=== PATIENT | male | born 1985 | race Caucasian/White ===

== ENCOUNTER → 2020-01-25 19:15 | Outpatient (REF) | payer OTHER, SELFPAY | LOC: HO.SL 19:15 | PROVIDERS: PCP Internal Medicine; Visit Provider Internal Medicine | DX: G47.33 Obstructive sleep apnea (adult) (pediatric) (principal) | CPT/HCPCS: 95811 ==

== ENCOUNTER 2020-09-19 08:40 | Outpatient (REF) | payer OTHER, SELFPAY ==
[2020-09-19 09:23] LABS: MANUAL DIFF FLAG NO
[2020-09-19 09:38] LABS: Basophils Percent Auto 0.2 % (0-2); Eosinophils Absolute Auto 0.1 X10*3/uL (0.0-0.4); Eosinophils Percent Auto 1.2 % (0-4); Hematocrit 39.6 % (42-52); Hemoglobin 13.1 g/dl (14.0-18.0); Imm Gran Abs Auto 0.03 X10*3/uL (0.00-0.03); Imm Gran Pct Auto 0.4 % (0.0-0.4); Lymphocytes Percent Auto 24.5 % (20-40); Mean Corpuscular HGB Conc 33.1 g/dl (31.0-36.0); Mean Corpuscular Hemoglobin 28.6 pg (27.0-33.0); Mean Corpuscular Volume 86.5 fL (80-98); Mean Platelet Volume 9.4 fL (9.4-12.4); Monocytes Absolute Auto 0.5 X10*3/uL (0.1-1.2); Monocytes Percent Auto 5.6 % (2-11); Neutrophils Absolute Auto 5.5 X10*3/uL (2.0-8.3); Neutrophils Percent Auto 68.1 % (45-73); Platelet Count 299 X10*3/uL (160-400); Red Blood Count 4.58 X10*6/uL (4.60-5.80); Red Cell Distribution Width 13.2 % (11.0-16.0); White Blood Count 8.1 X10*3/uL (4.8-10.8)
[2020-09-19 10:18] LABS: Alanine Aminotransferase 54 U/L (0-40); Albumin Level 4.6 g/dL (3.5-5.0); Alkaline Phosphatase 76 U/L (39-117); Anion Gap 14 (12-20); Aspartate Amino Transferase 36 U/L (5-37); Bilirubin Total 0.5 mg/dL (0.0-1.0); Blood Urea Nitrogen 15 mg/dL (9-16); Calcium 9.9 mg/dL (8.4-10.2); Carbon Dioxide 26 mmol/L (22-29); Chloride 106 mmol/L (96-108); Cholesterol 214 mg/dL; Estimated Glomerular Filt Rate > 60; Glucose Fasting 120 mg/dL (60-99); HDL Cholesterol 39 mg/dL; Potassium 4.1 mmol/L (3.3-5.1); Sodium 142 mmol/L (135-145); Total Protein 7.7 g/dL (6.5-8.0); Triglycerides 537 mg/dL
[2020-09-19 10:24] LABS: Thyroid Stimulating Hormone 0.45 uIU/mL (0.32-4.0)
== END 2020-09-19 08:41 | disposition home or self-care (01) ==
LOC: HO.LAB 08:40
PROVIDERS: PCP Internal Medicine; Visit Provider Internal Medicine
DX: Z00.00 Encounter for general adult medical examination without abnormal findings (principal); E11.9 Type 2 diabetes mellitus without complications; E03.9 Hypothyroidism, unspecified
CPT/HCPCS: 36415; 80053; 80061; 84443; 85025

== ENCOUNTER 2020-12-20 13:02 | Emergency (ER) | payer OTHER, SELFPAY ==
--- NOTE | ~2020-12-20 | XR_ITS ---
EXAMINATION: XR CHEST CLINICAL INFORMATION: Shortness of breath COMPARISON: None TECHNIQUE: AP portable view of the chest was obtained. FINDINGS: No significant abnormality is noted involving the heart, lungs, mediastinum, bony thorax or soft tissues. XR/XR chest 1V IMPRESSION: No acute disease.
--- NOTE | ~2020-12-20 | CT_ITS ---
EXAMINATION: CT ANGIOGRAM OF THE CHEST WITH AND WITHOUT CONTRAST (CT PULMONARY ANGIOGRAM FOR PE) CLINICAL INFORMATION: Reason for Exam tachycardia, sob, r/o pe, COVID + COMPARISON: None TECHNIQUE: Prior to contrast administration, noncontrast localization images were obtained. Subsequently, multidetector volumetric imaging was performed from the thoracic inlet to below the diaphragms following the administration of 68 mL Omnipaque 350 intravenous contrast. No contrast reaction reported Sagittal, coronal, and MIP oblique sagittal reformatted images were obtained on the CT workstation, uploaded to PACS, and reviewed. This CT examination was performed using dose optimization techniques as appropriate, variously including the following: *Automated exposure control *Adjustment of mA and/or kV according to patient size (this includes techniques or standardized protocols for targeted exams where dose is matched to indication/reason for exam; i.e. extremities or head) *Use of iterative reconstruction technique Total exam dose-length product 533 mGy-cm FINDINGS: QUALITY OF STUDY/CONTRAST BOLUS : Suboptimal. The bolus is not optimal and there is marked respiratory artifact PULMONARY ARTERIES: No central or large segmental pulmonary emboli. THORACIC AORTA: No aneurysm or dissection. LUNG: No focal consolidation, nodules or masses. No changes related to Covid pneumonia are present. PLEURA: No pleural effusion or pneumothorax. MEDIASTINUM: Normal heart size. No pericardial effusion. No hilar or mediastinal lymphadenopathy. No evidence of septal bowing or right heart strain. CHEST WALL/AXILLA: No axillary or internal mammary lymphadenopathy. OSSEOUS STRUCTURES: No acute or suspicious osseous abnormality. UPPER ABDOMEN: There is marked hepatic steatosis. No reflux of contrast into the hepatic veins to suggest elevated right heart pressures. CT/CT angio chest PE protocol IMPRESSION: No evidence of gross pulmonary emboli. Study has limitations as described above. VTE: negative
[2020-12-20 13:33] VITALS: BP 138/98; PULSE 128; RESP 16; TEMP 37.2; O2SAT 98; BMI 29.0
[2020-12-20] MEDS: Acetaminophen 325 MG TABLET 650 MG PO ×2 (14:33→22:50)
[2020-12-20 16:23] LABS: MANUAL DIFF FLAG NO
[2020-12-20 16:35] LABS: COVID-19 Test Positive (Negative); IDNOW Serial# 9DD0AD1C
[2020-12-20 16:40] LABS: Basophils Percent Auto 0.3 % (0-2); Eosinophils Percent Auto 0.1 % (0-4); Hematocrit 42.9 % (42-52); Hemoglobin 14.4 g/dl (14.0-18.0); Imm Gran Abs Auto 0.02 X10*3/uL (0.00-0.03); Imm Gran Pct Auto 0.3 % (0.0-0.4); Lymphocytes Absolute Auto 1.6 X10*3/uL (1.2-4.9); Lymphocytes Percent Auto 22.2 % (20-40); Mean Corpuscular HGB Conc 33.6 g/dl (31.0-36.0); Mean Corpuscular Hemoglobin 27.6 pg (27.0-33.0); Mean Corpuscular Volume 82.3 fL (80-98); Mean Platelet Volume 9.2 fL (9.4-12.4); Monocytes Absolute Auto 0.6 X10*3/uL (0.1-1.2); Monocytes Percent Auto 8.8 % (2-11); Neutrophils Absolute Auto 4.9 X10*3/uL (2.0-8.3); Neutrophils Percent Auto 68.3 % (45-73); Platelet Count 228 X10*3/uL (160-400); Red Blood Count 5.21 X10*6/uL (4.60-5.80); Red Cell Distribution Width 13.9 % (11.0-16.0); White Blood Count 7.1 X10*3/uL (4.8-10.8)
[2020-12-20 16:43] LABS: Anion Gap 16 (12-20); Blood Urea Nitrogen 18 mg/dL (9-16); Carbon Dioxide 21 mmol/L (22-29); Chloride 100 mmol/L (96-108); Creatinine Clr Calc Pharmacy 114.8; Estimated Glomerular Filt Rate > 60; Glucose Random 100 mg/dL (60-115); Potassium 3.5 mmol/L (3.3-5.1); Sodium 133 mmol/L (135-145)
[2020-12-20 16:48] LABS: B Type Natriuretic Peptide < 10 pg/mL (<100); Troponin-I High Sensitivity 3.8 ng/L (<3.5-35.0)
--- NOTE | 2020-12-20 19:42 | ED_ITS ---
HPI - SOB/Dyspnea General Chief Complaint: Dyspnea <Vi Collins NP - Last Filed: 12/20/20 23:19> Stated Complaint: diff breathing <Vi Collins NP - Last Filed: 12/20/20 23:19> Time Seen by Provider: 12/20/20 19:09 <Vi Collins NP - Last Filed: 12/20/20 23:19> Source: patient <Vi Collins NP - Last Filed: 12/20/20 23:19> Mode of arrival: ambulatory <Vi Collins NP - Last Filed: 12/20/20 23:19> Limitations: no limitations <Vi Collins NP - Last Filed: 12/20/20 23:19> History of Present Illness HPI Narrative: 35-year-old male with a past medical history of obstructive sleep apnea, alcohol abuse here with complaints of shortness of breath, headache, subjective fevers for 2 days. Patient has completed detox for alcohol and is currently in a TSS home. Multiple residents are quarantining waiting for COVID results to come back. Patient tells me he received the Moderna vaccine but only 1 dose 3 months ago. He tells me he forgot to get the 2nd dose. No chest pain, leg swelling, abdominal pain, vomiting, diarrhea, neck pain. He does have a cough <Vi Collins NP - Last Filed: 12/20/20 23:19> Related Data Home Medications: Home Medications Medication Instructions Recorded Confirmed clonidine HCl 0.1 mg tablet 0.1 mg PO BEDTIME 09/18/20 hydrochlorothiazide 12.5 mg capsule mg PO 09/18/20 olanzapine 15 mg tablet 15 mg PO BEDTIME 09/18/20 simvastatin 40 mg tablet 40 mg PO BEDTIME 09/18/20 trazodone 100 mg tablet 100 mg PO BEDTIME 09/18/20 Previous Rx's Medication Instructions Recorded sertraline 100 mg tablet 100 mg PO DAILY #90 tab 02/03/20 BIPAP MACHINE #1 ea 08/30/20 azithromycin 250 mg tablet See Rx Instructions PO .COMPLEX #6 10/03/20 tab <Vi Collins NP - Last Filed: 12/20/20 23:19> Allergies/Adverse Reactions: Allergies Allergy/AdvReac Type Severity Reaction Status Date / Time No Known Allergies Allergy Verified 10/03/20 14:15 <Vi Collins NP - Last Filed: 12/20/20 23:19> Review of Systems Review of Systems: Yes all other systems are reviewed and are negative <Vi Collins NP - Last Filed: 12/20/20 23:19> Constitutional: Constitutional: Reports no additional constitutional complaints, Reports body ache(s), Denies chills, Reports fever(s) (Subjective), Reports headache(s) and Denies weakness <Vi Collins NP - Last Filed: 12/20/20 23:19> Eyes: Eyes: Reports no additional eye complaints and Denies change in vision <Vi Collins NP - Last Filed: 12/20/20 23:19> ENT: Reports system reviewed and no additional complaints, except as documented, Denies dizziness, Reports headache(s), Denies nasal congestion, Denies nasal discharge and Denies neck pain <Vi Collins NP - Last Filed: 12/20/20 23:19> Cardiovascular: Cardiovascular: Reports no additional cardiovascular comp laints, Denies chest pain, Denies leg edema and Reports dyspnea <Vi Collins NP - Last Filed: 12/20/20 23:19> Respiratory: Respiratory: Reports no additional respiratory complaints, Reports cough and Reports dyspnea <Vi Collins NP - Last Filed: 12/20/20 23:19> Gastrointestinal: Gastrointestinal: Reports no additional gastrointestinal complaints, Denies abdominal pain, Denies diarrhea, Denies nausea and Denies vomiting <Vi Collins NP - Last Filed: 12/20/20 23:19> Genitourinary: Genitourinary: Denies urinary incontinence <Vi Collins NP - Last Filed: 12/20/20 23:19> Musculoskeletal: Musculoskeletal: Reports no additional musculoskeletal complaints, Denies back pain, Denies arthralgias, Denies joint swelling, Denies neck pain, Denies numbness and Denies tingling <Vi Collins NP - Last Filed: 12/20/20 23:19> Integumentary/Breasts: Skin/Breast: Reports system reviewed and no additional complaints, except as docu and Denies rash <Vi Collins NP - Last Filed: 12/20/20 23:19> Neurologic: Reports system reviewed and no additional complaints, except as documented, Denies Abnormal speech present, Denies dizziness, Reports headache(s), Denies numbness, Denies tingling and Denies weakness <Vi Collins NP - Last Filed: 12/20/20 23:19> [facility] Past Medical History Attestation statement: The following information was validated with the patient. <Vi Jessica i, NP - Last Filed: 12/20/20 23:19> Source: old records reviewed and nursing notes reviewed <Vi Collins NP - Last Filed: 12/20/20 23:19> Medical History: Medical History (Updated 12/20/20 @ 21:14 by Vi Collins NP) Obstructive sleep apnea <Vi Collins NP - Last Filed: 12/20/20 23:19> Family History Family History: Family History Mother Mental health disorder Father No problems noted. <Vi Collins NP - Last Filed: 12/20/20 23:19> Social History Social History: Social History Housing: Apartment Alcohol intake: former Patient Tobacco Use Status: Current everyday Tobacco user Tobacco use type: Cigarette Cigarette Packs Per Day: 1 Cigarettes Per Day: 20 e-Cigarette/Vaping Use: Never Used Second Hand Smoke Exposure: No Use of substances other than those prescribed or required for medical reasons: No Advance Directives: No Advance Directives Information Provided: No service: No Current occupational status: unemployed <Vi Collins NP - Last Filed: 12/20/20 23:19> Physical Exam Vital Signs: Vital Signs: Last Vital Signs Temp 98.4 F 12/20/20 19:46 Pulse 113 H 12/20/20 19:46 Resp 20 12/20/20 19:46 BP 127/77 12/20/20 19:46 Pulse Ox 97 12/20/20 19:46 Body Mass Index 29.0 <Vi Collins NP - Last Filed: 12/20/20 23:19> Vital Signs: Last Vital Signs Temp 98.4 F 12/20/20 19:46 Pulse 113 H 12/20/20 19:46 Resp 20 12/20/20 19:46 BP 127/77 12/20/20 19:46 Pulse Ox 97 12/20/20 19:46 Body Mass Index 29.0 <Kristian Nur DO - Last Filed: 12/29/20 17:00> Const: General: cooperative, healthy appearing, comfortable and no acute distress <Vi Collins NP - Last Filed: 12/20/20 23:19> Orientation/consciousness: patient oriented x3 <Vi Collins NP - Last Filed: 12/20/20 23:19> Limitations: no limitations <Vi Collins NP - Last Filed: 12/20/20 23:19> HENMT: Head: Yes normal to inspection <Vi Collins NP - Last Filed: 12/20/20 23:19> Ears: hearing grossly normal bilaterally <Vi Collins NP - Last Filed: 12/20/20 23:19> General nose exam: Normal external nose present <Vi Collins NP - Last Filed: 12/20/20 23:19> Face and sinus: Yes normal facial exam <Vi Collins NP - Last Filed: 12/20/20 23:19> Mouth: Normal oral and palatal mucosa present <Vi Collins NP - Last Filed: 12/20/20 23:19> Throat: Yes posterior oropharynx normal <Vi Collins NP - Last Filed: 12/20/20 23:19> Eyes: General: appearance normal, both eyes and all related structures <Vi Collins NP - Last Filed: 12/20/20 23:19> Pupils: Equal, round and reactive pupils present <Vi Collins NP - Last Filed: 09/22/21 23:19> Neck: Neck: Yes normal visual inspection <Vi Collins NP - Last Filed: 12/20/20 23:19> Chest: Chest palpation & inspection: normal inspection of the chest <Vi Collins NP - Last Filed: 12/20/20 23:19> Resp: Other: Tachypnea-rate of 24 <Vi Collins OFFENSIVE COORDINATOR - Last Filed: 12/20/20 23:19> Auscultation: clear to auscultation bilaterally <Vi Collins OFFENSIVE COORDINATOR - Last Filed: 12/20/20 23:19> Cardio: Rate: tachycardic <Vi Collins NP - Last Filed: 12/20/20 23:19> Rhythm: regular rhythm <Vi Collins NP - Last Filed: 12/20/20 23:19> Peripheral pulses: Peripheral pulses 2+ throughout <Vi Collins NP - Last Filed: 12/20/20 23:19> GI: Inspection: Yes normal to inspection <Vi Collins NP - Last File d: 12/20/20 23:19> Palpation (GI): Soft to palpation and nontender <Vi Collins NP - Last Filed: 12/20/20 23:19> Auscultation: normal bowel sounds <Vi Collins NP - Last Filed: 23:19> Back/Spine/Pelvis: Thoracic/Lumbar Spine: thoracic and lumbar spine normal to inspection <Vi Collins NP - Last Filed: 12/20/20 23:19> Skin: General skin exam: no rashes or lesions noted <Vi Collins NP - Last Filed: 12/20/20 23:19> Neuro: General: patient oriented x3, no focal motor deficits and normal sensation to monofilament <Vi Collins NP - Last Filed: 12/20/20 23:19> Cranial nerves: Yes Equal, round and reactive pupils present <Vi Collins NP - Last Filed: 12/20/20 23:19> Cognition (Neuro): normal cognition <Vi Collins NP - Last Filed: 12/20/20 23:19> Speech: No Abnormal speech present <Vi Collins NP - Last Filed: 12/20/20 23:19> Gait exam (Neuro): Normal gait present <Vi Collins NP - Last Filed: 12/20/20 23:19> Motor exam (neuro): 5/5 motor strength present throughout <Vi Collins NP - Last Filed: 12/20/20 23:19> Extrem: General: Yes normal to inspection, Yes no pedal edema and Yes no calf tenderness <Vi Collins NP - Last Filed: 12/20/20 23:19> Course Course Course Narrative: 35-year-old male here with complaints of flu-like symptoms for 2 days. COVID screen from triage is positive. On exam the patient has some mild tachypnea with reports of shortness of breath and cough. He is also tachycardic with a rate of 128. He is not febrile. Chest x-ray shows no acute finding. Will check CTA to rule out PE in addition to labs and EKG. Gentle hydration 194-tachycardia and tachypnea from a viral infection 2099-CT negative for any pulmonary embolism. Tachycardia has improved. Will perform ambulatory oxygen saturation prior to disposition 2200-patient ambulate around the room with oxygen saturation greater than 95%. His heart rate improved to 85 on discharge. Reviewed worrisome signs and symptoms when to return to the emergency department. Comfortable discharge home. <Vi Collnis NP - Last Filed: 12/20/20 23:19> MDM - SOB/Dyspnea Medical Records Attestation: I reviewed the patient's medical records. <Vi Collins NP - Last Filed: 12/20/20 23:19> Lab Data Attestation: I reviewed the patient's lab results. <Vi Collins NP - Last Filed: 12/20/20 23:19> Result diagrams: : 12/20/20 16:15 12/20/20 16:15 <Vi Collins NP - Last Filed: 12/20/20 23:19> Labs: Lab Results 12/20/20 12/20/20 12/20/20 Range/Units 16:15 16:15 16:15 WBC 7.1 (4.8-10.8) X10*3/uL RBC 5.21 (4.60-5.80) X10*6/uL Hgb 14.4 (14.0-18.0) g/dl Hct 42.9 (42-52) % MCV 82.3 (80-98) fL MCH 27.6 (27.0-33.0) pg MCHC 33.6 (31.0-36.0) g/dl RDW 13.9 (11.0-16.0) % Plt Count 228 (160-400) X10*3/uL MPV 9.2 L (9.4-12.4) fL Immature Gran % (Auto) 0.3 (0.0-0.4) % Neut % (Auto) 68.3 (45-73) % Lymph % (Auto) 22.2 (20-40) % [place] % (Auto) 8.8 (2-11) % Eos % (Auto) 0.1 (0-4) % Baso % (Auto) 0.3 (0-2) % Lymph # (Auto) 1.6 (1.2-4.9) X10*3/uL [place] # (Auto) 0.6 (0.1-1.2) X10*3/uL Eos # (Auto) 0.0 (0.0-0.4) X10*3/uL Baso # (Auto) 0.0 (0.0-0.2) X10*3/uL Abs Immat Gran (auto) 0.02 (0.00-0.03) X10*3/uL Absolute Neuts (auto) 4.9 (2.0-8.3) X10*3/uL Absolute Nucleated RBC 0.000 (0.0-0.012) X10*3/uL Nucleated RBC % (auto) 0.0 (0.0-0.2) /100WBC Sodium 133 L (135-145) mmol/L Potassium 3.5 (3.3-5.1) mmol/L Chloride 100 (96-108) mmol/L Carbon Dioxide 21 L (22-29) mmol/L Anion Gap 16 (12-20) BUN 18 H (9-16) mg/dL Creatinine 0.93 (0.5-1.4) mg/dL Estim Creat Clear Calc 114.8 Estimated GFR > 60 Random Glucose 100 (60-115) mg/dL Lactic Acid (0.5-2.0) mmol/L Calcium 9.0 D (8.4-10.2) mg/dL Ferritin (20-250) ng/mL Total Bilirubin (0.0-1.0) mg/dL Direct Bilirubin (0.0-0.5) mg/dL AST (5-37) U/L ALT (0-40) U/L Alkaline Phosphatase (39-117) U/L Lactate Dehydrogenase (118-273) U/L Troponin I High Sens 3.8 (<3.5-35.0) ng/L C-Reactive Protein (< or = 0.50) mg/dL B-Natriuretic Peptide < 10 (<100) pg/mL Total Protein (6.5-8.0) g/dL Albumin (3.5-5.0) g/dL Procalcitonin ng/mL COVID-19 ([facility]) (Negative) COVID-19 Clin Com 12/20/20 12/20/20 12/20/20 Range/Units 16:15 20:04 20:04 WBC (4.8-10.8) X10*3/uL RBC (4.60-5.80) X10*6/uL Hgb (14.0-18.0) g/dl Hct (42-52) % MCV (80-98) fL MCH (27.0-33.0) pg MCHC (31.0-36.0) g/dl RDW (11.0-16.0) % Plt Count (160-400) X10*3/uL MPV (9.4-12.4) fL Immature Gran % (Auto) (0.0-0.4) % Neut % (Auto) (45-73) % Lymph % (Auto) (20-40) % [place] % (Auto) (2-11) % Eos % (Auto) (0-4) % Baso % (Auto) (0-2) % Lymph # (Auto) (1.2-4.9) X10*3/uL [place] # (Auto) (0.1-1.2) X10*3/uL Eos # (Auto) (0.0-0.4) X10*3/uL Baso # (Auto) (0.0-0.2) X10*3/uL Abs Immat Gran (auto) (0.00-0.03) X10*3/uL Absolute Neuts (auto) (2.0-8.3) X10*3/uL Absolute Nucleated RBC (0.0-0.012) X10*3/uL Nucleated RBC % (auto) (0.0-0.2) /100WBC Sodium (135-145) mmol/L Potassium (3.3-5.1) mmol/L Chloride (96-108) mmol/L Carbon Dioxide (22-29) mmol/L Anion Gap (12-20) BUN (9-16) mg/dL Creatinine (0.5-1.4) mg/dL Estim Creat Clear Calc Estimated GFR Random Glucose (60-115) mg/dL Lactic Acid (0.5-2.0) mmol/L Calcium (8.4-10.2) mg/dL Ferritin 908 H (20-250) ng/mL Total Bilirubin 0.4 (0.0-1.0) mg/dL Direct Bilirubin < 0.2 (0.0-0.5) mg/dL AST 67 H (5-37) U/L ALT 73 H (0-40) U/L Alkaline Phosphatase 73 (39-117) U/L Lactate Dehydrogenase 273 (118-273) U/L Troponin I High Sens (<3.5-35.0) ng/L C-Reactive Protein 1.38 H (< or = 0.50) mg/dL B-Natriuretic Peptide (<100) pg/mL Total Protein 7.9 (6.5-8.0) g/dL Albumin 4.3 (3.5-5.0) g/dL Procalcitonin 0.19 ng/mL COVID-19 ([facility]) Positive A (Negative) COVID-19 Clin Com See Note 12/20/20 Range/Units 20:04 WBC (4.8-10.8) X10*3/uL RBC (4.60-5.80) X10*6/uL Hgb (14.0-18.0) g/dl Hct (42-52) % MCV (80-98) fL MCH (27.0-33.0) pg MCHC (31.0-36.0) g/dl RDW (11.0-16.0) % Plt Count (160-400) X10*3/uL MPV (9.4-12.4) fL Immature Gran % (Auto) (0.0-0.4) % Neut % (Auto) (45-73) % Lymph % (Auto) (20-40) % [place] % (Auto) (2-11) % Eos % (Auto) (0-4) % Baso % (Auto) (0-2) % Lymph # (Auto) (1.2-4.9) X10*3/uL [place] # (Auto) (0.1-1.2) X10*3/uL Eos # (Auto) (0.0-0.4) X10*3/uL Baso # (Auto) (0.0-0.2) X10*3/uL Abs Immat Gran (auto) (0.00-0.03) X10*3/uL Absolute Neuts (auto) (2.0-8.3) X10*3/uL Absolute Nucleated RBC (0.0-0.012) X10*3/uL Nucleated RBC % (auto) (0.0-0.2) /100WBC Sodium (135-145) mmol/L Potassium (3.3-5.1) mmol/L Chloride (96-108) mmol/L Carbon Dioxide (22-29) mmol/L Anion Gap (12-20) BUN (9-16) mg/dL Creatinine (0.5-1.4) mg/dL Estim Creat Clear Calc Estimated GFR Random Glucose (60-115) mg/dL Lactic Acid 1.7 (0.5-2.0) mmol/L Calcium (8.4-10.2) mg/dL Ferritin (20-250) ng/mL Total Bilirubin (0.0-1.0) mg/dL Direct Bilirubin (0.0-0.5) mg/dL AST (5-37) U/L ALT (0-40) U/L Alkaline Phosphatase (39-117) U/L Lactate Dehydrogenase (118-273) U/L Troponin I High Sens (<3.5-35.0) ng/L C-Reactive Protein (< or = 0.50) mg/dL B-Natriuretic Peptide (<100) pg/mL Total Protein (6.5-8.0) g/dL Albumin (3.5-5.0) g/dL Procalcitonin ng/mL COVID-19 ([facility]) (Negative) COVID-19 Clin Com <Vi Collins NP - Last Filed: 12/20/20 23:19> Lab Results 12/20/20 12/20/20 12/20/20 Range/Units 16:15 16:15 16:15 WBC 7.1 (4.8-10.8) X10*3/uL RBC 5.21 (4.60-5.80) X10*6/uL Hgb 14.4 (14.0-18.0) g/dl Hct 42.9 (42-52) % MCV 82.3 (80-98) fL MCH 27.6 (27.0-33.0) pg MCHC 33.6 (31.0-36.0) g/dl RDW 13.9 (11.0-16.0) % Plt Count 228 (160-400) X10*3/uL MPV 9.2 L (9.4-12.4) fL Immature Gran % (Auto) 0.3 (0.0-0.4) % Neut % (Auto) 68.3 (45-73) % Lymph % (Auto) 22.2 (20-40) % [place] % (Auto) 8.8 (2-11) % Eos % (Auto) 0.1 (0-4) % Baso % (Auto) 0.3 (0-2) % Lymph # (Auto) 1.6 (1.2-4.9) X10*3/uL [place] # (Auto) 0.6 (0.1-1.2) X10*3/uL Eos # (Auto) 0.0 (0.0-0.4) X10*3/uL Baso # (Auto) 0.0 (0.0-0.2) X10*3/uL Abs Immat Gran (auto) 0.02 (0.00-0.03) X10*3/uL Absolute Neuts (auto) 4.9 (2.0-8.3) X10*3/uL Absolute Nucleated RBC 0.000 (0.0-0.012) X10*3/uL Nucleated RBC % (auto) 0.0 (0.0-0.2) /100WBC Sodium 133 L (135-145) mmol/L Potassium 3.5 (3.3-5.1) mmol/L Chloride 100 (96-108) mmol/L Carbon Dioxide 21 L (22-29) mmol/L Anion Gap 16 (12-20) BUN 18 H (9-16) mg/dL Creatinine 0.93 (0.5-1.4) mg/dL Estim Creat Clear Calc 114.8 Estimated GFR > 60 Random Glucose 100 (60-115) mg/dL Lactic Acid (0.5-2.0) mmol/L Calcium 9.0 D (8.4-10.2) mg/dL Ferritin (20-250) ng/mL Total Bilirubin (0.0-1.0) mg/dL Direct Bilirubin (0.0-0.5) mg/dL AST (5-37) U/L ALT (0-40) U/L Alkaline Phosphatase (39-117) U/L Lactate Dehydrogenase (118-273) U/L Troponin I High Sens 3.8 (<3.5-35.0) ng/L C-Reactive Protein (< or = 0.50) mg/dL B-Natriuretic Peptide < 10 (<100) pg/mL Total Protein (6.5-8.0) g/dL Albumin (3.5-5.0) g/dL Procalcitonin ng/mL COVID-19 ([facility]) (Negative) COVID-19 Clin Com 12/20/20 12/20/20 12/20/20 Range/Units 16:15 20:04 20:04 WBC (4.8-10.8) X10*3/uL RBC (4.60-5.80) X10*6/uL Hgb (14.0-18.0) g/dl Hct (42-52) % MCV (80-98) fL MCH (27.0-33.0) pg MCHC (31.0-36.0) g/dl RDW (11.0-16.0) % Plt Count (160-400) X10*3/uL MPV (9.4-12.4) fL Immature Gran % (Auto) (0.0-0.4) % Neut % (Auto) (45-73) % Lymph % (Auto) (20-40) % [place] % (Auto) (2-11) % Eos % (Auto) (0-4) % Baso % (Auto) (0-2) % Lymph # (Auto) (1.2-4.9) X10*3/uL [place] # (Auto) (0.1-1.2) X10*3/uL Eos # (Auto) (0.0-0.4) X10*3/uL Baso # (Auto) (0.0-0.2) X10*3/uL Abs Immat Gran (auto) (0.00-0.03) X10*3/uL Absolute Neuts (auto) (2.0-8.3) X10*3/uL Absolute Nucleated RBC (0.0-0.012) X10*3/uL Nucleated RBC % (auto) (0.0-0.2) /100WBC Sodium (135-145) mmol/L Potassium (3.3-5.1) mmol/L Chloride (96-108) mmol/L Carbon Dioxide (22-29) mmol/L Anion Gap (12-20) BUN (9-16) mg/dL Creatinine (0.5-1.4) mg/dL Estim Creat Clear Calc Estimated GFR Random Glucose (60-115) mg/dL Lactic Acid (0.5-2.0) mmol/L Calcium (8.4-10.2) mg/dL Ferritin 908 H (20-250) ng/mL Total Bilirubin 0.4 (0.0-1.0) mg/dL Direct Bilirubin < 0.2 (0.0-0.5) mg/dL AST 67 H (5-37) U/L ALT 73 H (0-40) U/L Alkaline Phosphatase 73 (39-117) U/L Lactate Dehydrogenase 273 (118-273) U/L Troponin I High Sens (<3.5-35.0) ng/L C-Reactive Protein 1.38 H (< or = 0.50) mg/dL B-Natriuretic Peptide (<100) pg/mL Total Protein 7.9 (6.5-8.0) g/dL Albumin 4.3 (3.5-5.0) g/dL Procalcitonin 0.19 ng/mL COVID-19 ([facility]) Positive A (Negative) COVID-19 Clin Com See Note 12/20/20 Range/Units 20:04 WBC (4.8-10.8) X10*3/uL RBC (4.60-5.80) X10*6/uL Hgb (14.0-18.0) g/dl Hct (42-52) % MCV (80-98) fL MCH (27.0-33.0) pg MCHC (31.0-36.0) g/dl RDW (11.0-16.0) % Plt Count (160-400) X10*3/uL MPV (9.4-12.4) fL Immature Gran % (Auto) (0.0-0.4) % Neut % (Auto) (45-73) % Lymph % (Auto) (20-40) % [place] % (Auto) (2-11) % Eos % (Auto) (0-4) % Baso % (Auto) (0-2) % Lymph # (Auto) (1.2-4.9) X10*3/uL [place] # (Auto) (0.1-1.2) X10*3/uL Eos # (Auto) (0.0-0.4) X10*3/uL Baso # (Auto) (0.0-0.2) X10*3/uL Abs Immat Gran (auto) (0.00-0.03) X10*3/uL Absolute Neuts (auto) (2.0-8.3) X10*3/uL Absolute Nucleated RBC (0.0-0.012) X10*3/uL Nucleated RBC % (auto) (0.0-0.2) /100WBC Sodium (135-145) mmol/L Potassium (3.3-5.1) mmol/L Chloride (96-108) mmol/L Carbon Dioxide (22-29) mmol/L Anion Gap (12-20) BUN (9-16) mg/dL Creatinine (0.5-1.4) mg/dL Estim Creat Clear Calc Estimated GFR Random Glucose (60-115) mg/dL Lactic Acid 1.7 (0.5-2.0) mmol/L Calcium (8.4-10.2) mg/dL Ferritin (20-250) ng/mL Total Bilirubin (0.0-1.0) mg/dL Direct Bilirubin (0.0-0.5) mg/dL AST (5-37) U/L ALT (0-40) U/L Alkaline Phosphatase (39-117) U/L Lactate Dehydrogenase (118-273) U/L Troponin I High Sens (<3.5-35.0) ng/L C-Reactive Protein (< or = 0.50) mg/dL B-Natriuretic Peptide (<100) pg/mL Total Protein (6.5-8.0) g/dL Albumin (3.5-5.0) g/dL Procalcitonin ng/mL COVID-19 ([facility]) (Negative) COVID-19 Clin Com <Kristian Nur DO - Last Filed: 12/29/20 17:00> Imaging Data Chest x-ray: Attestation: I personally reviewed and interpreted this imaging study as follows: <Vi Collins NP - Last Filed: 12/20/20 23:19> Radiologist's impression: [place] [id number] XRay Report Signed Patient: Victor Hugo Mir MR#: [id number] : 1985 Acct:[id number] Age/Sex: 35 / M ADM Date: 12/20/20 Loc: .ED Attending Dr: Ordering Physician: Generic ED Physician Date of Service: 12/20/20 Procedure(s): XR chest 1V Accession Number(s): [id number] cc: Generic ED Physician~ EXAMINATION: XR CHEST CLINICAL INFORMATION: Shortness of breath COMPARISON: None TECHNIQUE: AP portable view of the chest was obtained. FINDINGS: No significant abnormality is noted involving the heart, lungs, mediastinum, bony thorax or soft tissues. XR/XR chest 1V IMPRESSION: No acute disease. ? <Vi Collins NP - Last Filed: 12/20/20 23:19> CT scan - chest: Attestation: I personally reviewed and interpreted this imaging study as follows: <Vi Collins NP - Last Filed: 12/20/20 23:19> Radiologist's impression: FINDINGS: QUALITY OF STUDY/CONTRAST BOLUS : Suboptimal. The bolus is not optimal and there is marked respiratory artifact PULMONARY ARTERIES: No central or large segmental pulmonary emboli.? THORACIC AORTA: No aneurysm or dissection. LUNG: No focal consolidation, nodules or masses. No changes related to Covid pneumonia are present. PLEURA: No pleural effusion or pneumothorax. MEDIASTINUM: Normal heart size.? No pericardial effusion.? No hilar or mediastinal lymphadenopathy.? No evidence of septal bowing or right heart strain. CHEST WALL/AXILLA: No axillary or internal mammary lymphadenopathy. OSSEOUS STRUCTURES: No acute or suspicious osseous abnormality.? UPPER ABDOMEN: There is marked hepatic steatosis.? No reflux of contrast into the hepatic veins to suggest elevated right heart pressures. CT/CT angio chest PE protocol IMPRESSION: No evidence of gross pulmonary emboli. Study has limitations as described above. ? VTE: negative <Vi Collins NP - Last Filed: 12/20/20 23:19> ECG Data Attestation: I personally reviewed and interpreted this ECG as follows: <Vi Collins NP - Last Filed: 12/20/20 23:19> ECG interpretation date: 12/20/20 <Vi Collins NP - Last Filed: 12/20/20 23:19> ECG interpretation time: 21:54 <Vi Collins NP - Last Filed: 12/20/20 23:19> Interpretation: Normal sinus rhythm with a sinus arrhythmia with a rate of 85, normal WA, normal QRS, normal QT <Vi Collins NP - Last Filed: 12/20/20 23:19> Discharge Plan Discharge Clinical Impression: COVID-19 <Vi Collins NP - Last Filed: 12/20/20 23:19> Patient Disposition: Home, Self-Care <Vi Collins NP - Last Filed: 12/20/20 23:19> Instructions: COVID-19 (Coronavirus Disease 2019) (ED) <Vi Collins NP - Last Filed: 12/20/20 23:19> Additional Instructions: Increase fluids, rest Motrin or tylenol for pain or fever Per CDC you must quarantine for 10 days Return for chest pain, worsening shortness of breath, fever which is not respond to Motrin Tylenol <Vi Collins NP - Last Filed: 12/20/20 23:19> Prescriptions: No Action sertraline 100 mg tablet 100 mg PO DAILY Qty: 90 RF: 8 (DME) BIPAP MACHINE 20/10 CM H20 0 .Route .MEDSUPPLY Qty: 1 RF: 0 Hold Instructions: Doctor's Order azithromycin 250 mg tablet See Rx Instructions PO .COMPLEX Qty: 6 RF: 0 clonidine HCl 0.1 mg tablet 0.1 mg PO BEDTIME RF: 0 hydrochlorothiazide 12.5 mg capsule PO RF: 0 simvastatin 40 mg tablet 40 mg PO BEDTIME RF: 0 olanzapine 15 mg tablet 15 mg PO BEDTIME RF: 0 trazodone 100 mg tablet 100 mg PO BEDTIME RF: 0 <Vi Collins NP - Last Filed: 12/20/20 23:19> Referrals: Larry Campbell MD [Primary Care Provider] - 2 days <Vi Collins NP - Last Filed: 12/20/20 23:19> Interventions: ED Discharge Assessment Last Done: 12/20/20 22:53 <Vi Collins NP - Last Filed: 12/20/20 23:19> Discharge Date/Time: 12/20/20 22:54 <Vi Collins NP - Last Filed: 12/20/20 23:19>
[2020-12-20 19:46] VITALS: BP 127/77; PULSE 113; RESP 20; TEMP 36.9; O2SAT 97
[2020-12-20] MEDS: 0.9 % Sodium Chloride 1,000 ML 999 ML IV (20:07)
[2020-12-20] MEDS: iohexoL 350 MG/ML 100 ML INFUS..BTL IV (20:25)
[2020-12-20 20:30] LABS: Lactic Acid 1.7 mmol/L (0.5-2.0)
[2020-12-20 20:33] LABS: Alanine Aminotransferase 73 U/L (0-40); Albumin Level 4.3 g/dL (3.5-5.0); Alkaline Phosphatase 73 U/L (39-117); Aspartate Amino Transferase 67 U/L (5-37); Bilirubin Direct < 0.2 mg/dL (0.0-0.5); Bilirubin Total 0.4 mg/dL (0.0-1.0); C Reactive Protein 1.38 mg/dL (< or = 0.50); Lactate Dehydrogenase 273 U/L (118-273); Total Protein 7.9 g/dL (6.5-8.0)
[2020-12-20 20:53] LABS: Procalcitonin 0.19 ng/mL
[2020-12-20 20:54] LABS: Ferritin 908 ng/mL (20-250)
--- NOTE | 2020-12-20 21:14 | ECG_ITS ---
Test Reason : DYSPNEA Blood Pressure : / mmHG Vent. Rate : 085 BPM Atrial Rate : 085 BPM P-R Int : 136 ms QRS Dur : 100 ms QT Int : 354 ms P-R-T Axes : 055 001 037 degrees QTc Int : 421 ms Normal sinus rhythm with sinus arrhythmia Normal ECG No previous ECGs available Referred By: Vi Collins Electronically Signed By:JANEL SHEIKH
== END 2020-12-20 22:54 | disposition home or self-care (01) ==
PROVIDERS: Nurse Practitioner Family; Emergency Provider Student in an Organized Health Care Education/Training Program; PCP Internal Medicine
DX: U07.1 COVID-19 (principal); R06.00 Dyspnea, unspecified; R06.02 Shortness of breath; G47.33 Obstructive sleep apnea (adult) (pediatric); R50.9 Fever, unspecified; F10.10 Alcohol abuse, uncomplicated; Y90.9 Presence of alcohol in blood, level not specified; F17.210 Nicotine dependence, cigarettes, uncomplicated; Z71.6 Tobacco abuse counseling; Z79.899 Other long term (current) drug therapy
CPT/HCPCS: 36415; 71045; 71275; 80048; 80076; 82728; 83605; 83615; 83880; 84145; 84484; 85025; 86140; 87040; 87635; 93005; 96360; 99284; 99285; Q9967

== ENCOUNTER → 2021-03-13 08:48 | Outpatient (BNVA) | payer OTHER, SELFPAY | PROVIDERS: PCP Internal Medicine; Visit Provider Dietitian, Registered | DX: E66.01 Morbid (severe) obesity due to excess calories (principal); E78.5 Hyperlipidemia, unspecified; Z68.42 Body mass index [BMI] 45.0-49.9, adult | CPT/HCPCS: 97802 ==

== ENCOUNTER 2021-05-17 21:31 | Emergency (ER) | payer OTHER, SELFPAY ==
[2021-05-17 21:51] VITALS: BP 109/47; BP 140/100; PULSE 114; PULSE 128; RESP 20; TEMP 36.7; O2SAT 94; O2SAT 96; BMI 45.4
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
[2021-05-17 23:29] VITALS: PULSE 108; RESP 37; O2SAT 100
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
[2021-05-18 04:00] VITALS: BP 109/47; PULSE 98; RESP 12; TEMP 36.7; O2SAT 96
[2021-05-18 06:00] VITALS: BP 134/81; PULSE 84; RESP 12; O2SAT 92
--- NOTE | 2021-05-18 06:12 | PC.NURSE ---
Patient desats into the 80's due to sleep apnea. He has 20-30 second pauses between breathing. Respiratory down to place patient on CPAP. Patient uncooperative and doesn't keep the mask on. Staff have gone in a number of times to reposition onto back and patients head elevated. Patient had to be sternal rubbed a number of times in order to wake him up.
[2021-05-18 07:00] VITALS: RESP 20
== END 2021-05-18 09:14 ==
PROVIDERS: Emergency Provider Emergency Medicine; PCP Internal Medicine
DX: F10.129 Alcohol abuse with intoxication, unspecified (principal); Y90.9 Presence of alcohol in blood, level not specified; F14.10 Cocaine abuse, uncomplicated; F17.210 Nicotine dependence, cigarettes, uncomplicated; Z71.6 Tobacco abuse counseling; Z79.899 Other long term (current) drug therapy; Z71.51 Drug abuse counseling and surveillance of drug abuser
CPT/HCPCS: 94660; 99284; 99285

== ENCOUNTER 2021-05-30 13:59 | Outpatient (REF) | payer OTHER, SELFPAY ==
--- NOTE | ~2021-05-30 | XR_ITS ---
EXAMINATION: RIGHT ELBOW AND RIGHT HAND. CLINICAL INFORMATION: Pain after fall. COMPARISON: None TECHNIQUE: 3 views right elbow and 4 views right hand. FINDINGS: RIGHT HAND: There is no visible acute fracture, dislocation or subluxation. The joint alignment is normal. No soft tissue abnormality seen. RIGHT ELBOW: The radioulnar-humeral/elbow joint alignment is normal. No bony erosive changes. There is a subtle lucency along the radial head, inconclusive. Otherwise no acute fracture or dislocation. The anterior fat pad sign appears slightly prominent and may represent focal fracture not seen on this exam. XR/XR hand RT 2V IMPRESSION: Unremarkable right hand exam. Positive anterior fat pad sign without a visible fracture. Recommend follow-up elbow x-ray in 1-2 weeks.
--- NOTE | ~2021-05-30 | XR_ITS ---
EXAMINATION: RIGHT ELBOW AND RIGHT HAND. CLINICAL INFORMATION: Pain after fall. COMPARISON: None TECHNIQUE: 3 views right elbow and 4 views right hand. FINDINGS: RIGHT HAND: There is no visible acute fracture, dislocation or subluxation. The joint alignment is normal. No soft tissue abnormality seen. RIGHT ELBOW: The radioulnar-humeral/elbow joint alignment is normal. No bony erosive changes. There is a subtle lucency along the radial head, inconclusive. Otherwise no acute fracture or dislocation. The anterior fat pad sign appears slightly prominent and may represent focal fracture not seen on this exam. XR/XR elbow LT 2V IMPRESSION: Unremarkable right hand exam. Positive anterior fat pad sign without a visible fracture. Recommend follow-up elbow x-ray in 1-2 weeks.
== END 2021-05-30 14:00 | disposition home or self-care (01) ==
LOC: HO.XRAY 13:59
PROVIDERS: PCP Internal Medicine; Visit Provider Internal Medicine
DX: M25.529 Pain in unspecified elbow (principal); M79.643 Pain in unspecified hand
CPT/HCPCS: 73070; 73120

== ENCOUNTER 2023-04-01 17:41 | Emergency (ER) | payer OTHER, SELFPAY ==
--- NOTE | ~2023-04-01 | XR_ITS ---
EXAMINATION: XR LUMBOSACRAL SPINE CLINICAL INFORMATION: Fall. COMPARISON: None available. TECHNIQUE: Three views of the lumbosacral spine. FINDINGS: There is mild straightening of lumbar lordosis. The vertebral heights and alignment is normal. There is loss of L5-S1 disc height with ventral spondylosis. Rest the disc heights are normal. No visible acute fracture, dislocation or subluxation seen. SI joints are symmetrical and normal. XR/XR lumbar spine 2-3V IMPRESSION: Mild degenerative disc changes L5-S1 disc level with ventral spondylosis. No visible acute fracture or dislocation seen.
--- NOTE | ~2023-04-01 | CT_ITS ---
EXAMINATION: CT facial bones wo IV con, CT cervical spine wo IV con, CT head/brain wo IV con CLINICAL INFORMATION: Reason for Exam pain trauma COMPARISON: None. TECHNIQUE: Contiguous axial imaging was performed from the skull base to vertex without intravenous contrast. Sagittal and coronal reformatted images were obtained. Helical noncontrast CT imaging was acquired through the facial bones and source images were reviewed along with axial reconstructions and sagittal and coronal MPRs. CT images of the cervical spine were acquired without intravenous contrast. This CT examination was performed using dose optimization techniques as appropriate, variously including the following: * Automated exposure control * Adjustment of mA and/or kV according to patient size (this includes techniques or standardized protocols for targeted exams where dose is matched to indication/reason for exam; i.e. extremities or head) Use of iterative reconstruction technique DLP: 1871 mGy-cm FINDINGS: CT HEAD: There is no evidence of acute intracranial hemorrhage. No mass-effect or ventricular shift is noted. No acute, territorial loss of gonzales-white differentiation. The ventricles and sulci are appropriate in size and configuration for the patient's stated age. No depressed calvarial fracture. CT MAXILLOFACIAL: Plate and screw fixation along the anterior right mandible. No evidence of acute hardware complication. The mandible is intact and both temporomandibular joints are located. Comminuted, mildly displaced fracture of the right nasal bone. Likely nondisplaced fractures of the anterior nasal septum and questionably the left nasal bone. There is overlying soft tissue swelling. The pterygoid plates and zygomatic arches are intact. The globes are unremarkable. The orbits including the orbital floors are intact. Trace scattered paranasal sinus mucosal thickening. No air-fluid levels. The mastoid air cells are well-aerated. CT CERVICAL SPINE: No prevertebral soft tissue swelling. The craniocervical junction is intact. Straightening with mild reversal of the normal cervical lordosis. There is no significant spondylolisthesis. Vertebral body heights are normal without acute compression fracture. No suspicious osseous lesion. Evaluation of the aerodigestive tract is degraded by motion. CT/CT cervical spine wo IV con IMPRESSION: No acute intracranial hemorrhage or mass effect. Comminuted, mildly displaced fracture of the right nasal bone with likely nondisplaced fractures of the anterior nasal septum and left nasal bone. Overlying soft tissue swelling. No displaced cervical spine fracture.
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
[2023-04-01 18:06] VITALS: BP 114/75; PULSE 89; RESP 15; TEMP 36.8; O2SAT 96
[2023-04-01 18:07] VITALS: BP 118/84; PULSE 109; O2SAT 97; BMI 34.0
[2023-04-01] MEDS: Acetaminophen 325 MG TABLET 650 MG PO (18:21)
--- NOTE | 2023-04-01 18:22 | PC.NURSE ---
pt medicated per provider order. pt going to CT at this time.
[2023-04-01] MEDS: Ibuprofen 600 MG TABLET PO (20:07)
--- NOTE | 2023-04-01 20:09 | PC.NURSE ---
Provider into assess pt, medicated per mar.
--- NOTE | 2023-04-01 20:25 | PC.NURSE ---
Pt medicated per May, reviewed discharge instruction with pt. pt verbalized understanding.
== END 2023-04-01 20:26 | disposition home or self-care (01) ==
PROVIDERS: Emergency Provider Emergency Medicine Emergency Medical Services; PCP Internal Medicine
DX: S09.90XA Unspecified injury of head, initial encounter (principal); S02.2XXA Fracture of nasal bones, initial encounter for closed fracture; S00.31XA Abrasion of nose, initial encounter; Y35.93XA Legal intervention, means unspecified, suspect injured, initial encounter; M54.50 Low back pain, unspecified; F19.10 Other psychoactive substance abuse, uncomplicated; F10.20 Alcohol dependence, uncomplicated; Y90.9 Presence of alcohol in blood, level not specified; I10 Essential (primary) hypertension; E78.5 Hyperlipidemia, unspecified; R60.0 Localized edema; E66.9 Obesity, unspecified; Z68.34 Body mass index [BMI] 34.0-34.9, adult; F17.210 Nicotine dependence, cigarettes, uncomplicated; Y93.9 Activity, unspecified; Y92.9 Unspecified place or not applicable; Y99.9 Unspecified external cause status
CPT/HCPCS: 70450; 70486; 72100; 72125; 99284

== ENCOUNTER 2024-07-28 09:48 | Outpatient (AMB) | payer OTHER, SELFPAY ==
[2024-07-28 09:56] VITALS: BP 106/66; PULSE 106; RESP 16; TEMP 37; O2SAT 97; BMI 35.7
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
--- OUTSIDE RECORDS SUMMARY | 2024-07-28 10:42 | XMS_ITS | Clinical Summary ---
Author Organization [facility] ity Address [address] [place] [address] Care Team Providers Care Eclectic Doctor Name Role Phone Unavailable Primary Care Provider Unavailabl e Social History Tobacco Use Types Packs/Day Years Used Date Smoking Tobacco: Never Assessed Sex and Gender Information Value Date Recorded Sex Assigned at Not on file Legal Sex Male 11:07 AM EST Gender Identity Not on file Sexual Orientation Not on file Plan of Treatment Health Maintenance Due Date Last Done Comments DTaP,Tdap,and Td Vaccines (1 - Tdap) 2004 Hepatitis B Vaccines (1 of 3 - 19+ 3-dose series) 2004 COVID-19 Vaccine (2023-2 5 season) 2023 Influenza Vaccine (Season Ended) 2024 HIB Vaccines Aged Out No longer eligi ble based on patient's age to complete this topic HPV Vaccines Aged Out No longer eligi ble based on patient's age to complete this topic Hepatitis A Vaccines Aged Out No long er eligible based on patient's age to complete this topic IPV Vaccines Aged Out No longer eligi ble based on patient's age to complete this topic MMR Vaccines Aged Out No longer eligi ble based on patient's age to complete this topic Meningococcal ACWY Vaccine Aged Out N o longer eligible based on patient's age to complete this topic Meningococcal B Vaccine Aged Out No l onger eligible based on patient's age to complete this topic Pneumococcal Vaccine: Pediat rics (0 to 5 Years) and At-Risk Patients (6 to 64 Years) Aged Out No longer eligible b ased on patient's age to complete this topic RSV Immunization Patients Un vesna 20 months Aged Out No longer eligible b ased on patient's age to complete this topic Varicella Vaccines Aged Out No longer eligible based on patient's age to complete this topic
== END 2024-07-28 10:57 | disposition home or self-care (01) ==
LOC: HO.HMCH 09:49
DX: F20.9 Schizophrenia, unspecified (principal); F41.9 Anxiety disorder, unspecified; F32.A Depression, unspecified; B35.1 Tinea unguium; G47.33 Obstructive sleep apnea (adult) (pediatric)

== ENCOUNTER → 2024-07-28 09:48 | Outpatient (BNVA) | payer OTHER, SELFPAY | DX: F20.9 Schizophrenia, unspecified (principal); F41.9 Anxiety disorder, unspecified; F32.A Depression, unspecified; B35.1 Tinea unguium; G47.33 Obstructive sleep apnea (adult) (pediatric) | CPT/HCPCS: 96127; 99212 ==

== ENCOUNTER 2024-07-29 07:53 | Outpatient (REF) | payer OTHER, SELFPAY ==
--- OUTSIDE RECORDS SUMMARY | 2024-07-29 07:58 | XMS_ITS | Clinical Summary ---
Author Organization [facility] Address [address] [place] [address] Care Team Providers Care Chairman And Chief Executive Officer Name Role Phone Unavailable Primary Care Provider [...]
[2024-07-29 08:04] LABS: MANUAL DIFF FLAG NO
[2024-07-29 08:09] LABS: Basophils Percent Auto 0.3 % (0-2); Eosinophils Absolute Auto 0.1 X10*3/uL (0.0-0.4); Hematocrit 41.6 % (42.0-52.0); Hemoglobin 14.2 g/dl (14.0-18.0); Imm Gran Abs Auto 0.02 X10*3/uL (0.00-0.03); Imm Gran Pct Auto 0.3 % (0.0-0.4); Lymphocytes Absolute Auto 2.5 X10*3/uL (1.2-4.9); Lymphocytes Percent Auto 37.1 % (20-40); Mean Corpuscular HGB Conc 34.1 g/dl (31.0-36.0); Mean Corpuscular Hemoglobin 28.6 pg (27.0-33.0); Mean Corpuscular Volume 83.9 fL (80.0-98.0); Mean Platelet Volume 8.9 fL (9.4-12.4); Monocytes Absolute Auto 0.4 X10*3/uL (0.1-1.2); Monocytes Percent Auto 5.9 % (2-11); Neutrophils Absolute Auto 3.7 x10*3/uL (2.0-8.3); Neutrophils Percent Auto 55.4 % (45-73); Platelet Count 291 X10*3/uL (160-400); Red Blood Count 4.96 X10*6/uL (4.60-5.80); Red Cell Distribution Width 13.2 % (11.0-16.0); White Blood Count 6.7 X10*3/uL (4.8-10.8)
[2024-07-29 08:46] LABS: Alanine Aminotransferase 41 U/L (0-40); Albumin Level 4.4 g/dL (3.5-5.0); Alkaline Phosphatase 83 U/L (39-117); Anion Gap 14 (12-20); Aspartate Amino Transferase 25 U/L (5-37); Bilirubin Total 0.3 mg/dL (0.0-1.0); Blood Urea Nitrogen 16 mg/dL (9-16); Calcium 9.5 mg/dL (8.4-10.2); Carbon Dioxide 26 mmol/L (22-29); Chloride 104 mmol/L (96-108); Cholesterol 246 mg/dL (<200); Estimated Glomerular Filt Rate > 60; Glucose Fasting 99 mg/dL (60-99); HDL Cholesterol 41 mg/dL (>40); Iron 67 mcg/dL (45-160); LDL Cholesterol Calculated 128 mg/dL (<100); Percent Iron Saturation 22 % (15-50); Sodium 140 mmol/L (135-145); Total Iron Binding Capacity 298 mcg/dL (228-428); Total Protein 7.8 g/dL (6.5-8.0); Triglycerides 386 mg/dL (<150); Unsaturated Iron Binding 231 ug/dL
[2024-07-29 09:03] LABS: Ferritin 263 ng/mL (20-250); Vitamin D 25-OH Total 14.9 ng/mL (>30)
[2024-07-29 09:17] LABS: Appearance Urine Clear; Color Urine Yellow; Glucose Urine UA Negative (Negative); Leukocyte Esterase Urine Negative (Negative); Nitrite Urine Negative (Negative); PH 5.5 (5.0-9.0); Specific Gravity - Urine 1.015 (1.005-1.025); Urine Blood Negative (Negative); Urine Ketones Negative (Negative); Urine Protein Negative (Neg-Trace)
== END 2024-07-29 07:54 | disposition home or self-care (01) ==
LOC: HO.LAB 07:53
DX: F31.81 Bipolar II disorder (principal); F41.9 Anxiety disorder, unspecified; F20.9 Schizophrenia, unspecified; E78.5 Hyperlipidemia, unspecified; E66.01 Morbid (severe) obesity due to excess calories; I10 Essential (primary) hypertension; G47.33 Obstructive sleep apnea (adult) (pediatric); R79.89 Other specified abnormal findings of blood chemistry
CPT/HCPCS: 36415; 80053; 80061; 81003; 82306; 82728; 83540; 84443; 85025

== ENCOUNTER 2024-08-16 08:03 | Outpatient (AMB) | payer OTHER, SELFPAY ==
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
[2024-08-16 08:17] VITALS: BP 120/60; PULSE 80; TEMP 36.1; O2SAT 96; BMI 37.6
== END 2024-08-16 09:03 | disposition home or self-care (01) ==
LOC: HO.HMCH 08:04
DX: Z00.00 Encounter for general adult medical examination without abnormal findings (principal); F20.9 Schizophrenia, unspecified; E66.9 Obesity, unspecified; Z68.37 Body mass index [BMI] 37.0-37.9, adult; F41.9 Anxiety disorder, unspecified; F32.A Depression, unspecified; B35.1 Tinea unguium; G47.33 Obstructive sleep apnea (adult) (pediatric)

== ENCOUNTER → 2024-08-16 08:03 | Outpatient (BNVA) | payer OTHER, SELFPAY | DX: Z00.00 Encounter for general adult medical examination without abnormal findings (principal); F20.9 Schizophrenia, unspecified; F41.9 Anxiety disorder, unspecified; F32.A Depression, unspecified; B35.1 Tinea unguium; G47.33 Obstructive sleep apnea (adult) (pediatric); E66.9 Obesity, unspecified; Z68.37 Body mass index [BMI] 37.0-37.9, adult | CPT/HCPCS: 99395 ==

== ENCOUNTER 2024-09-01 10:31 | Outpatient (AMB) | payer OTHER, SELFPAY ==
--- NOTE | 2024-09-01 10:39 | AM.OFFVISNUR ---
Intake Visit Reasons: PPD Plant Allergies No Known Allergies Allergy (Verified 08/16/24 08:24) Office Meds tuberculin PPD 5 tub. unit/0.1 mL intradermal injection solution Performing Provider: JAKE Collazo [place] [facility] [place] [facility] Administered by: Kathy Patterson LPN on 09/01/24 10:39 Dose Route Admin Location Dispensed Lot Number Expiration Date [facility] [employer] Machine [employer] 0.1 mL intradermal left forearm 0.1 mL [id number] 02/27/27 03459-278-27 [employer] Assessment & Plan Assessment & Plan Orders: Orders AMB PPD Planted Today Z11.1 - Encounter for screening for respiratory tuberculosis Medications: New tuberculin PPD 0.1 mL intradermal ONCE 0.1 mL 0RF Z11.1 - Encounter for screening for respiratory tuberculosis Coding
--- OUTSIDE RECORDS SUMMARY | 2024-09-01 11:13 | XMS_ITS | Clinical Summary ---
Author Organization [address] [place] [address] [address] [place] [address] Phone Care Team Providers Care Care Team Coordinator Scheduler Name Role Phone Smith Ramos Primary Care Provider [phone] Social History Tobacco Use Types Packs/Day Years [...] 2004 COVID-19 Vaccine (2023-2 5 season) 2023 Cholesterol Screening (Lipid Panel) 08/18/2024 Depression Screening 08/18/2024 HIV Screening 08/18/2024 Hepatitis C Screening 08/18/2024 Social Influencers of Health Screening 08/18/2024 Influenza Vaccine (Season Ended) 2024 HIB Vaccines [...] on patient's age to complete this topic Insurance Care Teams Care Team Coordinator Scheduler Relationship Specialty Start Date End Date Smith Ramos [address] [place] [address], [address] [place] [address] PCP - General Family Medicine 08/18/24
== END 2024-09-01 10:41 | disposition home or self-care (01) ==
LOC: HO.HMCH 10:31
DX: Z11.1 Encounter for screening for respiratory tuberculosis (principal)

== ENCOUNTER → 2024-09-01 10:31 | Outpatient (BNVA) | payer OTHER, SELFPAY | DX: Z11.1 Encounter for screening for respiratory tuberculosis (principal) | CPT/HCPCS: 86580 ==

== ENCOUNTER 2024-10-27 10:16 | Outpatient (AMB) | payer MEDICAID, SELFPAY ==
[2024-10-27 10:18] VITALS: BP 130/100; PULSE 104; RESP 18; TEMP 36.2; O2SAT 96; BMI 39.3
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
--- OUTSIDE RECORDS SUMMARY | 2024-10-27 11:06 | XMS_ITS | Clinical Summary ---
Author Organization 175 [facility] Address [address] [place] [address] Phone Care Team Providers Care Parts Facilitator Name Role Phone Smith Ramos FAVIO Primary Care Provider Social History Tobacco Use Types Packs/Day Years Used Date Smoking Tobacco: Never Assessed Sex and Gender Information Value Date Recorded Sex Assigned at Not on file Legal Sex Male 11:07 AM EST Gender Identity Not on file Sexual Orientation Not on file Plan of Treatment Upcoming Encounters Date Type Department Care Team ([facility] st Contact Info) Description 11/03/2024 11:00 AM EDT Consult Orthopedic Surgery [place] [id number] [phone] Alfie Knight, DPWhitney [address] [phone] Health Maintenance Due Date Last Done Comments DTaP,Tdap,and Td Vaccines (1 - Tdap) 2004 Hepatitis B Vaccines (1 of 3 - 19+ 3-dose series) 2004 COVID-19 Vaccine ( - 2023-2 5 season) 2023 Depression Screening 03/31/2024 Cholesterol Screening (Lipid Panel) 08/18/2024 HIV Screening 08/18/2024 Hepatitis C Screening 08/18/2024 Social Influencers of Health Screening 08/18/2024 Influenza Vaccine (#1) 2024 HIB Vaccines Aged Out No longer [...] 5 Years) and At-Risk Patients (6 to 49 Years) Aged Out No longer eligible b ased on patient's age to complete this topic RSV Immunization Patients Un vesna 20 months Aged Out No longer eligible b ased on patient's age to complete this topic Varicella Vaccines Aged Out No longer eligible based on patient's age to complete this topic Insurance Care Teams Parts Facilitator Relationship Specialty Start Date End Date Smith Ramos FNP [address] [place] [address] PCP - General Family Medicine 08/18/24
== END 2024-10-27 11:02 | disposition home or self-care (01) ==
LOC: HO.HMCH 10:17
DX: F20.9 Schizophrenia, unspecified (principal); F10.20 Alcohol dependence, uncomplicated; E66.01 Morbid (severe) obesity due to excess calories; Z68.39 Body mass index [BMI] 39.0-39.9, adult; E78.5 Hyperlipidemia, unspecified; F41.9 Anxiety disorder, unspecified; I10 Essential (primary) hypertension; E55.9 Vitamin D deficiency, unspecified; R74.8 Abnormal levels of other serum enzymes; R79.89 Other specified abnormal findings of blood chemistry; G47.33 Obstructive sleep apnea (adult) (pediatric); K08.89 Other specified disorders of teeth and supporting structures

== ENCOUNTER → 2024-10-27 10:16 | Outpatient (BNVA) | payer OTHER, SELFPAY | DX: F20.9 Schizophrenia, unspecified (principal); F41.9 Anxiety disorder, unspecified; F10.20 Alcohol dependence, uncomplicated; I10 Essential (primary) hypertension; E78.5 Hyperlipidemia, unspecified; E66.01 Morbid (severe) obesity due to excess calories; Z68.39 Body mass index [BMI] 39.0-39.9, adult; E55.9 Vitamin D deficiency, unspecified; R74.8 Abnormal levels of other serum enzymes; R79.89 Other specified abnormal findings of blood chemistry; G47.33 Obstructive sleep apnea (adult) (pediatric); K08.89 Other specified disorders of teeth and supporting structures; Z79.899 Other long term (current) drug therapy; Z99.89 Dependence on other enabling machines and devices; Z13.31 Encounter for screening for depression; Z13.39 Encounter for screening examination for other mental health and behavioral disorders | CPT/HCPCS: 99212 ==

== ENCOUNTER 2024-10-29 08:55 | Outpatient (REF) | payer OTHER, SELFPAY ==
[2024-10-29 09:11] LABS: MANUAL DIFF FLAG NO
--- OUTSIDE RECORDS SUMMARY | 2024-10-29 09:11 | XMS_ITS | Clinical Summary ---
Author Organization 175 [facility] Address [address] [place] [address] Phone Care Team Providers Care Chronograph Operator Name Role Phone Smith Ramos FAVIO Primary Care Provider Social History Tobacco Use Types Packs/Day Years Used Date Smoking Tobacco: Never Assessed Sex and Gender Information Value Date Recorded Sex Assigned at Not on file Legal Sex Male 11:07 AM EST Gender Identity Not on file Sexual Orientation Not on file Plan of Treatment Upcoming Encounters Date Type Department Care Team ([facility] st Contact Info) Description 11/03/2024 11:00 AM EDT Consult Orthopedic Surgery [place] [id number] [phone] Alfie Knight, DPWhitney [address] [address] Health Maintenance Due Date Last Done Comments [...] to complete this topic Insurance Care Teams Chronograph Operator Relationship Specialty Start Date End Date Smith Ramos FNP [address] [place] [address] PCP - General Family Medicine 08/18/24
[2024-10-29 09:29] LABS: Hematocrit 41.4 % (42.0-52.0); Hemoglobin 14.5 g/dl (14.0-18.0); Imm Gran Abs Auto 0.01 X10*3/uL (0.00-0.03); Imm Gran Pct Auto 0.2 % (0.0-0.4); Lymphocytes Absolute Auto 2.2 X10*3/uL (1.2-4.9); Mean Corpuscular HGB Conc 35.0 g/dl (31.0-36.0); Mean Corpuscular Hemoglobin 28.0 pg (27.0-33.0); Mean Corpuscular Volume 80.1 fL (80.0-98.0); NRBC Abs Auto 0.000 X10*3/uL (0.0-0.012); NRBC Pct Auto 0.0 /100WBC (0.0-0.2); Platelet Count 294 X10*3/uL (160-400); Red Blood Count 5.17 X10*6/uL (4.60-5.80); White Blood Count 5.7 X10*3/uL (4.8-10.8)
[2024-10-29 09:39] LABS: Appearance Urine Clear; Glucose Urine UA Negative (Negative); PH 6.5 (5.0-9.0); Specific Gravity - Urine <= 1.005 (1.005-1.025)
[2024-10-29 10:07] LABS: Alanine Aminotransferase 36 U/L (0-40); Albumin Level 4.6 g/dL (3.5-5.0); Alkaline Phosphatase 81 U/L (39-117); Anion Gap 13 (12-20); Aspartate Amino Transferase 36 U/L (5-37); Blood Urea Nitrogen 12 mg/dL (9-16); Calcium 9.1 mg/dL (8.4-10.2); Carbon Dioxide 26 mmol/L (22-29); Chloride 105 mmol/L (96-108); Cholesterol 234 mg/dL (<200); Estimated Glomerular Filt Rate > 60; HDL Cholesterol 31 mg/dL (>40); Potassium 3.8 mmol/L (3.3-5.1); Sodium 140 mmol/L (135-145); Total Protein 8.0 g/dL (6.5-8.0); Triglycerides 645 mg/dL (<150)
[2024-10-29 10:23] LABS: Ferritin 315 ng/mL (20-250)
== END 2024-10-29 08:56 | disposition home or self-care (01) ==
LOC: HO.LAB 08:55
DX: E78.2 Mixed hyperlipidemia (principal); E66.01 Morbid (severe) obesity due to excess calories; R79.89 Other specified abnormal findings of blood chemistry; R74.8 Abnormal levels of other serum enzymes; I10 Essential (primary) hypertension; E55.9 Vitamin D deficiency, unspecified; F20.9 Schizophrenia, unspecified
CPT/HCPCS: 36415; 80053; 80061; 81003; 82306; 82728; 84443; 85025

== ENCOUNTER 2025-01-27 08:33 | Outpatient (REF) | payer OTHER, SELFPAY ==
[2025-01-27 08:54] LABS: MANUAL DIFF FLAG NO
--- OUTSIDE RECORDS SUMMARY | 2025-01-27 09:25 | XMS_ITS | Clinical Summary ---
Author Organization [address] [facility] Address [address] [place] [address] Phone Care Team Providers Care Magazine Hand Name Role Phone Smith Rmaos FAVIO Primary Care Provider Allergies No known active allergies Medications ketoconazole (NIZORAL) 2 % cream Apply topically 1 (one) time each day. 60 g 2 Active Encounters Date Type Department Care Team Description 01/10/2025 2:45 PM EDT Consult Orthopedic [facility] [address] [phone] Alfie Knight DPM Pain in toes of both feet (Primary Dx); Tinea pedis of both feet; Dermatophytosis of nail from Last 3 Months Social History Tobacco Use Types Packs/Day Years Used Date Smoking Tobacco: Never Assessed Sex and Gender Information Value Date Recorded Sex Assigned at Not on file Legal Sex Male 11:07 AM EST Gender Identity Not on file Sexual Orientation Not on file Plan of Treatment Upcoming Encounters Date Type Department Care Team ([facility] st Contact Info) Description 03/14/2025 2:45 PM EST Office Visit Orthopedic [facility] [address] [phone] Alfie Knight DPM [address] [place] [phone] Health Maintenance Due Date Last Done Comments Hepatitis A Vaccines (1 of 2 - Risk 2-dose series) 2004 Pneumococcal Vaccine: Pediatrics (0 to 5 Years) and At-Risk Patients (6 to 49 Years) (1 of 2 - PCV) 2004 HPV Vaccines (1 - 3-dose SCD M series) 2012 Depression Screening 03/31/2024 Cholesterol Screening (Lipid Panel) 08/18/2024 HIV Screening 08/18/2024 Hepatitis C Screening 08/18/2024 Social Influencers of Health Screening 08/18/2024 COVID-19 Vaccine (3 - 2024-2 6 season) 2024 09/26/2021, 08/23/2020 Influenza Vaccine (#1) 2024 01/22/2019 DTaP,Tdap,and Td Vaccines (3 - Td or Tdap) 07/31/2027 07/30/2017, 05/19/2015 RSV Immunization Adult Patients (1 - 1-dose 75+ series) 2060 Hepatitis B Vaccines Completed 11/17/2001, 02/02/2001 HIB Vaccines Aged Out No longer eligi [...] to complete this topic RSV Immunization Patients Under 20 months Aged Out No longer eligible b ased on patient's age to complete this topic Varicella Vaccines Aged Out No longer eligible based on patient's age to complete this topic Procedures Procedure Name Priority Date/Time Associated Diagnosis Comments COMPREHENSIVE METABOLIC PANEL Routine 01/10/2025 3:18 PM EDT Dermatophytosis of nail from Last 3 Months Results * (ABNORMAL) Comprehensive metabolic panel (01/10/2025 3:18 PM EDT) Sodium 139 133 - 145 mmol/L LAB CHEMISTRY METHOD 01/10/2025 6:36 PM EDT [facility] Potassium 4.0 3.5 - 5.5 mmol/L LAB CHEMISTRY METHOD 01/10/2025 6:36 PM EDT [facility] Chloride 103 96 - 110 mmol/L LAB CHEMISTRY METHOD 01/10/2025 6:36 PM [facility] CO2 25 21 - 32 mmol/L LAB CHEMISTRY METHOD 01/10/2025 6:36 PM [facility] Anion Gap 11 3 - 11 LAB CHEMISTRY METHOD 01/10/2025 6:36 PM [facility] Glucose 149(H) 70 - 100 mg/dL LAB CHEMISTRY METHOD 01/10/2025 6:36 PM [facility] BUN 15 5 - 25 mg/dL LAB CHEMISTRY METHOD 01/10/2025 6:36 PM [facility] Creatinine 1.08 0.70 - 1.30 mg/dL LAB CHEMISTRY METHOD 01/10/2025 6:36 PM [facility] eGFR 90 >=60 mL/min/1. 73m2 LAB CHEMISTRY METHOD 01/10/2025 6:36 PM [facility] Comment:Calculation based on the Chronic Kidney Disease Epidemiology Collaboration (CKD-EPI) equation refit without adjustment for race. BUN/Creatinine Ratio 13.9 LAB CHEMISTRY METHOD 01/10/2025 6:36 PM [facility] Calcium 9.2 8.5 - 10.5 mg/dL LAB CHEMISTRY METHOD 01/10/2025 6:36 PM [facility] AST (SGOT) 37 10 - 42 unit/L LAB CHEMISTRY METHOD 01/10/2025 6:36 PM [facility] ALT (SGPT) 68(H) 10 - 60 unit/L LAB CHEMISTRY METHOD 01/10/2025 6:36 PM [facility] Alkaline Phosphatase 78 42 - 121 unit/L LAB CHEMISTRY METHOD 01/10/2025 6:36 PM [facility] Total Protein 7.6 6.0 - 8.0 g/dL LAB CHEMISTRY METHOD 01/10/2025 6:36 PM [facility] Albumin 3.9 3.2 - 5.0 g/dL LAB CHEMISTRY METHOD 01/10/2025 6:36 PM EDT [facility] Total Bilirubin 0.4 0.0 - 1.4 mg/dL LAB CHEMISTRY METHOD 01/10/2025 6:36 PM EDT [facility] Blood Venous blood specimen / Unknown Venipuncture / Unknown 01/10/2025 3:18 PM EDT 01/10/2025 3:18 PM EDT us Alfie Knight DPM LAB BLOOD ORDERABLES Final Result [facility] [address] [place] [address], [place] [phone] from Last 3 Months Insurance [facility] [employer] Care Teams Magazine Hand Relationship Specialty Start Date End Date Smith Ramos FNP [address] [place] [address] PCP - General Family Medicine 08/18/24
[2025-01-27 09:30] LABS: Hematocrit 42.7 % (42.0-52.0); Hemoglobin 14.3 g/dl (14.0-18.0); Imm Gran Abs Auto 0.02 X10*3/uL (0.00-0.03); Imm Gran Pct Auto 0.3 % (0.0-0.4); Lymphocytes Absolute Auto 2.3 X10*3/uL (1.2-4.9); Mean Corpuscular HGB Conc 33.5 g/dl (31.0-36.0); Mean Corpuscular Hemoglobin 27.7 pg (27.0-33.0); Mean Corpuscular Volume 82.8 fL (80.0-98.0); NRBC Abs Auto 0.000 X10*3/uL (0.0-0.012); NRBC Pct Auto 0.0 /100WBC (0.0-0.2); Platelet Count 294 X10*3/uL (160-400); Red Blood Count 5.16 X10*6/uL (4.60-5.80); White Blood Count 5.8 X10*3/uL (4.8-10.8)
[2025-01-27 10:25] LABS: Alanine Aminotransferase 69 U/L (0-40); Albumin Level 4.5 g/dL (3.5-5.0); Alkaline Phosphatase 74 U/L (39-117); Anion Gap 14 (12-20); Aspartate Amino Transferase 45 U/L (5-37); Blood Urea Nitrogen 12 mg/dL (9-16); Calcium 9.3 mg/dL (8.4-10.2); Carbon Dioxide 24 mmol/L (22-29); Chloride 107 mmol/L (96-108); Estimated Glomerular Filt Rate > 60; Potassium 3.8 mmol/L (3.3-5.1); Sodium 141 mmol/L (135-145); Total Protein 7.9 g/dL (6.5-8.0)
[2025-01-27 11:28] LABS: Appearance Urine Clear; Glucose Urine UA Negative (Negative); PH 6.0 (5.0-9.0); Specific Gravity - Urine 1.010 (1.005-1.025); UMIC TRIGGER UACC YES
== END 2025-01-27 08:34 | disposition home or self-care (01) ==
LOC: HO.LAB 08:33
DX: F20.9 Schizophrenia, unspecified (principal); F41.9 Anxiety disorder, unspecified; F32.A Depression, unspecified; F10.20 Alcohol dependence, uncomplicated; F19.10 Other psychoactive substance abuse, uncomplicated; I10 Essential (primary) hypertension; E78.2 Mixed hyperlipidemia; E66.01 Morbid (severe) obesity due to excess calories; E11.9 Type 2 diabetes mellitus without complications
CPT/HCPCS: 36415; 80053; 81001; 81003; 82306; 84443; 85025

== ENCOUNTER 2025-01-28 10:23 | Outpatient (AMB) | payer OTHER, SELFPAY ==
[2025-01-28 10:29] VITALS: BP 120/78; PULSE 107; RESP 18; TEMP 36.3; O2SAT 97; BMI 44.0
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
--- OUTSIDE RECORDS SUMMARY | 2025-01-28 11:48 | XMS_ITS | Clinical Summary ---
Author Organization [address] [facility] Address [address] [place] [address] Phone Care Team Providers Care Port Captain Name Role Phone Smith Ramos FAVIO Primary Care Provider Allergies No known active allergies Medications ketoconazole (NIZORAL) 2 % cream Apply topically 1 (one) time each day. 60 g 2 Active Encounters Date Type Department Care Team Description 01/10/2025 2:45 PM EDT Consult [facility] [address] [phone] Alfie Knight DPM Pain in toes of [...] Upcoming Encounters Date Type Department Care Team ([facility] st Contact Info) Description 03/14/2025 2:45 PM EST Office Visit [facility] [address] [phone] Alfie Knight DPM [address] [place] [phone] Health Maintenance Due Date Last Done Comments [...] LAB CHEMISTRY METHOD 01/10/2025 6:36 PM EDT [facility] Potassium 4.0 3.5 - 5.5 mmol/L LAB CHEMISTRY METHOD 01/10/2025 6:36 PM EDT [facility] Chloride 103 96 - 110 mmol/L LAB CHEMISTRY METHOD 01/10/2025 6:36 PM [facility] CO2 25 21 - 32 mmol/L LAB CHEMISTRY METHOD 01/10/2025 6:36 PM [facility] Anion Gap 11 3 - 11 LAB CHEMISTRY METHOD 01/10/2025 6:36 PM [facility] Glucose 149(H) 70 - 100 mg/dL LAB CHEMISTRY METHOD 01/10/2025 6:36 PM [facility] BUN 15 5 - 25 mg/dL LAB CHEMISTRY METHOD 01/10/2025 6:36 PM [facility] Creatinine 1.08 0.70 - 1.30 mg/dL LAB CHEMISTRY METHOD 01/10/2025 6:36 PM [facility] eGFR 90 >=60 mL/min/1. 73m2 LAB CHEMISTRY METHOD 01/10/2025 6:36 PM [facility] Comment:Calculation based on the Chronic Kidney Disease Epidemiology Collaboration (CKD-EPI) equation refit without adjustment for race. BUN/Creatinine Ratio 13.9 LAB CHEMISTRY METHOD 01/10/2025 6:36 PM [facility] Calcium 9.2 8.5 - 10.5 mg/dL LAB CHEMISTRY METHOD 01/10/2025 6:36 PM [facility] AST (SGOT) 37 10 - 42 unit/L LAB CHEMISTRY METHOD 01/10/2025 6:36 PM [facility] ALT (SGPT) 68(H) 10 - 60 unit/L LAB CHEMISTRY METHOD 01/10/2025 6:36 PM [facility] Alkaline Phosphatase 78 42 - 121 unit/L LAB CHEMISTRY METHOD 01/10/2025 6:36 PM [facility] Total Protein 7.6 6.0 - 8.0 g/dL LAB CHEMISTRY METHOD 01/10/2025 6:36 PM [facility] Albumin 3.9 3.2 - 5.0 g/dL LAB CHEMISTRY METHOD 01/10/2025 6:36 PM EDT [facility] Total Bilirubin 0.4 0.0 - 1.4 mg/dL LAB CHEMISTRY METHOD 01/10/2025 6:36 PM EDT [facility] Blood Venous blood specimen / Unknown Venipuncture / Unknown 01/10/2025 3:18 PM EDT 01/10/2025 3:18 PM EDT us Alfie Knight DPM LAB BLOOD ORDERABLES Final Result [facility] [address] [place] [address], [place] [phone] from Last 3 Months Insurance [facility] [employer] Care Teams Port Captain Relationship Specialty Start Date End Date Smith Ramos FNP [address] [place] [address] PCP - General Family Medicine 08/18/24
== END 2025-01-28 12:03 | disposition home or self-care (01) ==
LOC: HO.HMCH 10:24
DX: F20.9 Schizophrenia, unspecified (principal); F10.20 Alcohol dependence, uncomplicated; E66.01 Morbid (severe) obesity due to excess calories; Z68.41 Body mass index [BMI] 40.0-44.9, adult; F41.9 Anxiety disorder, unspecified; I10 Essential (primary) hypertension; E78.2 Mixed hyperlipidemia; E55.9 Vitamin D deficiency, unspecified; R74.8 Abnormal levels of other serum enzymes; R79.89 Other specified abnormal findings of blood chemistry; G47.33 Obstructive sleep apnea (adult) (pediatric)

== ENCOUNTER → 2025-01-28 10:23 | Outpatient (BNVA) | payer OTHER, SELFPAY | DX: I10 Essential (primary) hypertension (principal); E78.5 Hyperlipidemia, unspecified; G47.33 Obstructive sleep apnea (adult) (pediatric); F20.9 Schizophrenia, unspecified; E78.2 Mixed hyperlipidemia; E66.01 Morbid (severe) obesity due to excess calories; E55.9 Vitamin D deficiency, unspecified; R74.8 Abnormal levels of other serum enzymes; R79.89 Other specified abnormal findings of blood chemistry; F41.9 Anxiety disorder, unspecified; F32.A Depression, unspecified; F10.20 Alcohol dependence, uncomplicated; Z68.41 Body mass index [BMI] 40.0-44.9, adult | CPT/HCPCS: 99212 ==